=== PATIENT | female | born 1985 | race Caucasian/White ===

== ENCOUNTER 2017-03-02 19:56 | Emergency (ER) | payer MEDICAID ==
[~2017-03-02] VITALS: Ht 154.9 cm; Wt 65.0 kg
[2017-03-02 19:57] VITALS: BP 155/97; PULSE 118; RESP 16; TEMP 99.4; O2SAT 99
[2017-03-02] MEDS ORDERED: KETO1SOL3 LEFT EYE (21:34)
[2017-03-02] MEDS ORDERED: CIPR3.5O LEFT EYE (21:34)
[2017-03-02] MEDS ORDERED: BACT800T5 PO (21:34)
--- NOTE | 2017-03-02 21:36 | PD ---
HPI Chief Complaint: Eye Problems/Injury Time Seen by Provider: 21:01 Travel History International Travel<30 days: No Contact w/Intl Traveler<30days: No Traveled to known affect area: No History of Present Illness HPI 31y female presents to emergency department with left eye swelling and pruritus since this morning. States that she went to [facility] today scratched her eye and this is when her pain and discomfort worsened. Patient states that she is also developed a clear discharge. States that the swelling has increased throughout the day and it has become more painful. States she does have some mild tenderness with horizontal movement of her eyes but otherwise has full range of motion of her eyes. Patient wears contact lenses occasionally the last used several weeks ago. Patient denies blurred vision. Denies photophobia. Denies fevers or chills. States she is anxious as this is her eye. PFSH Past Medical History Medical History: Denies Significant Hx ?: Not LMP: 02/28/17 Past Surgical History Section: Yes Gynecologic Surgery: Yes (LEFT OVARIAN CYST REMOVED) Social History Alcohol Use: Yes (OCC) Tobacco Use: No Substance Use: No Allergies-Medications (Allergen,Severity, Reaction): Coded Allergies: codeine (Verified Adverse Reaction, Intermediate, Nausea/Vomiting, 03/02/17 ) Reported Meds & Prescriptions Reported Meds & Active Scripts Active Acular Opth Drops (Ketorolac Tromethamine) 0.5% Drops 1 Drop LEFT EYE QID 5 Days Ciloxan Opth Oint (Ciprofloxacin) 0.3% Oint 0.5 Inch LEFT EYE TID 7 Days Bactrim DS (Sulfamethoxazole-Trimethoprim) 800-160 Mg Tab 1 Tab PO BID Review of Systems Except as stated in HPI: all other systems reviewed are Neg Physical Exam Narrative GENERAL: Well-nourished, well-developed patient, anxious SKIN: Focused skin assessment warm/dry. HEAD: Normocephalic. EYES: Left eye- significant scleral injection, clear otorrhea Sidel sign negative, fluorescein stain without uptake, ocular pressures 4 left, 15 right EOMI- mild tenderness with horizontal movement of left eye. PERRLA without pain. Left Eyelids slightly edematous and erythematous. No ptosis or proptosis. NECK: Supple, trachea midline. No JVD or lymphadenopathy. CARDIOVASCULAR: Regular rate and rhythm without murmurs, gallops, or rubs. RESPIRATORY: Breath sounds equal bilaterally. No accessory muscle use.. MUSCULOSKELETAL: No cyanosis, or edema. BACK: Nontender without obvious deformity. No CVA tenderness. Data Data Last Documented VS Vital Signs Date Time Temp Pulse Resp B/P (MAP) Pulse Ox O2 Delivery O2 Flow Rate FiO2 03/02/17 19:57 99.4 118 16 155/97 (116) 99 Room Air Orders Orders Ed Discharge Order (03/02/17 21:36) Sulfamet-Trimeth Ds 800-160 Mg (Bactrim (03/02/17 21:45) MDM Medical Decision Making Medical Screen Exam Complete: Yes Emergency Medical Condition: Yes Differential Diagnosis Left eye conjunctivitis, corneal abrasion, corneal laceration, preseptal cellulitis, orbital cellulitis Narrative Course 31y female presents to emergency department with left eye swelling and pruritus since this morning. States that she went to [facility] today scratched her eye and this is when her pain and discomfort worsened. Patient states that she is also developed a clear discharge. States that the swelling has increased throughout the day and it has become more painful. States she does have some mild tenderness with horizontal movement of her eyes but otherwise has full range of motion of her eyes. Patient wears contact lenses occasionally the last used several weeks ago. Patient denies blurred vision. Denies photophobia. Denies fevers or chills. States she is anxious as this is her eye. Vital signs stable. Physical exam findings consistent with conjunctivitis and preseptal cellulitis. Patient explains a history of touching and rubbing her her eye after touching multiple objects. I suspect much of her eyelid swelling and tenderness is related to self-inflicted trauma from the itching. I discussed the risks vs benefits of imaging studies. Because of the mechanism and physical examination, I believe that imaging can wait. Patient prefers to wait for imaging as well after discussion. Patient understands the importance of taking all medications prescribed today. States understanding and will comply. Patient given Cipro ointment, Acular, Bactrim. Advised to avoid touching her eyes. Avoid contact lens use. She has very strict instructions to return to the emergency department for worsening symptoms. 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 Diagnosis Primary Impression: Conjunctivitis Qualified Codes: H10.32 - Unspecified acute conjunctivitis, left eye Additional Impression: Preseptal cellulitis of left eye Referrals: [facility] Additional Instructions: Take all medications as prescribed. Follow-up with an eye doctor within 2-3 days. If your symptoms worsen or persists return to the emergency department. Scripts Ketorolac Opth Drops (Acular Opth Drops) 0.5% Drops 1 DROP LEFT EYE QID for Pain/Inflammation for 5 Days, #5 ML 0 Refills Prov: Ranjana Phelps 03/02/17 Ciprofloxacin Opth Oint (Ciloxan Opth Oint) 0.3% Oint 0.5 INCH LEFT EYE TID for Infection for 7 Days, #1 TUBE 0 Refills Prov: Ranjana Phelps 03/02/17 Sulfamethoxazole-Trimethoprim (Bactrim DS) 800-160 Mg Tab 1 TAB PO BID for Infection, #20 TAB 0 Refills Prov: Ranjana Phelps 03/02/17 Disposition: 01 DISCHARGE HOME Condition: Stable Ranjana Phelps Mar 02, 2017 21:36
[2017-03-02] MEDS ORDERED: SULFAMETHOXAZOLE-TRIMETHOPRIM DS 800-160 MG TAB PO ONE (21:45)
== END 2017-03-02 21:52 | disposition home or self-care (01) ==
LOC: NEPK 19:56
DX: H10.32 Unspecified acute conjunctivitis, left eye (principal); Z90.721 Acquired absence of ovaries, unilateral; Z88.5 Allergy status to narcotic agent
CPT/HCPCS: 99284